=== PATIENT | male | born 1975 | race Caucasian/White ===

== ENCOUNTER 2021-04-18 13:23 | Emergency (ER) | payer OTHER, SELFPAY ==
[2021-04-18 13:36] VITALS: BP 157/99; PULSE 80; RESP 16; TEMP 36.5; O2SAT 99
--- NOTE | 2021-04-18 13:43 | ED.URI ---
HPI - URI/Sore Throat General Chief Complaint: Upper Respiratory Infection Stated Complaint: sinus infection Source: patient Mode of arrival: ambulatory Limitations: no limitations History of Present Illness HPI Narrative: Patient is a 45-year-old male who presents complaining of cough, congestion, runny nose and body aches. He reports being tested for [facility] at the [facility] and was negative. Reports positive for parainfluenza virus. He denies taking any [id number] medications prior to arrival. Reports a history of Covid in July 2020, reports vaccinated x2. Patient reports a history of hypertension. MD elicited complaint: sore throat, rhinorrhea and nasal congestion Related Data Home Medications Medication Instructions Recorded Confirmed Cpap 04/18/21 04/18/21 Allergies Allergy/AdvReac Type Severity Reaction Status Date / Time No Known Allergies Allergy Verified 04/18/21 13:48 Review of Systems Review of Systems: CONSTITUTIONAL: Denies fever, chills, or sweats. EYES: Denies visual changes, redness, or discharge. ENT: Reports rhinorrhea, congestion, sore throat. CARDIOVASCULAR: Denies chest pain, palpitations, or edema. RESPIRATORY: Denies cough or dyspnea. GASTROINTESTINAL: Denies abdominal pain, nausea, vomiting, or diarrhea. GENITOURINARY: Denies dysuria or hematuria. SKIN: Denies rash or itching. MUSCULOSKELETAL: Denies back pain, joint pain, or myalgia. NEUROLOGIC: Denies headache, numbness, dizziness, or weakness. PSYCHIATRIC: Denies anxiety or depression. [facility] Past Medical History Medical History Arthritis Fracture Hiatal hernia HTN (hypertension) Surgical History Surgical History History of orthopedic surgery Family History Family History (Updated 04/18/21 @ 13:45 by JELANI Jones) Mother Family history of thyroid disease Other Carcinoma of colon Parkinsons disease Social History Social History (Updated 04/18/21 @ 13:46 by JELANI Jones) Smoking status: Former smoker Smoking end date: 08/11/11 Alcohol intake: current Substance use: never Living arrangements: with family Comments At the time of signature, I have reviewed and agree with nursing past medical, surgical, social, and family history unless otherwise noted. Please see nursing chart for further information. There is no relevant family history pertinent to the presenting complaint. Exam Narrative: GENERAL: Well-appearing, well-nourished, and in no acute distress. HEAD: Normocephalic, atraumatic. EYES: EOMI. No redness or drainage. Conjunctiva are normal. ENT: Mucous membranes pink and moist. Nares clear. Positive rhinorrhea. Throat mild erythema, no edema or exudate. Uvula midline. NECK: AROM. Supple. No lymphadenopathy. CHEST: No respiratory distress. HEART: Regular rate and rhythm. EXTREMITIES: Normal range of motion. No edema. SKIN: Warm, dry, no rash. NEURO: No focal deficits. Alert and oriented x3. Gait steady. PSYCH: Normal affect. No signs of depression or anxiety. Course Vital Signs Vital signs: Vital Signs Temperature 36.5 C 04/18/21 13:36 Pulse Rate 80 04/18/21 13:36 Respiratory Rate 16 04/18/21 13:36 Blood Pressure 157/99 H 04/18/21 13:36 Pulse Oximetry 99 04/18/21 13:36 Temperature 36.5 C 04/18/21 13:36 Pulse Rate 80 04/18/21 13:36 Respiratory Rate 16 04/18/21 13:36 Blood Pressure 157/99 H 04/18/21 13:36 Pulse Oximetry 99 04/18/21 13:36 Reviewed. Patient has been instructed to follow-up with his PCP regarding his blood pressure. MDM - URI/Sore Throat MDM Narrative Medical decision making narrative: Discussed with patient most likely viral illness. Patient reports that Covid testing was negative at the [facility]. Discussed quarantine and when the return to work. Patient agrees with plan of care. Patient is stable for dischar
== END 2021-04-18 14:05 | disposition home or self-care (01) ==
PROVIDERS: Emergency Provider Nurse Practitioner
DX: J06.9 Acute upper respiratory infection, unspecified (principal); Z87.891 Personal history of nicotine dependence; M19.90 Unspecified osteoarthritis, unspecified site; I10 Essential (primary) hypertension
CPT/HCPCS: 99202; G0463

== ENCOUNTER 2021-05-02 08:02 | Emergency (ER) | payer OTHER, SELFPAY ==
--- NOTE | 2021-05-02 08:07 | ED.URI ---
HPI - URI/Sore Throat General Chief Complaint: Upper Respiratory Infection Stated Complaint: cough and upset stomach Time Seen by Provider: 05/02/21 08:07 Source: patient and RN notes reviewed History of Present Illness HPI Narrative: Patient is a 45-year-old male who presents the urgent care with complaints of cough and upset stomach. 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 Patient was seen here on April 18 and states that symptoms did improve up until last night. [facility] and had parainfluenza 2 . Patient states that he had been taking Tylenol/ibuprofen and Mucinex. Patient states he has had the cough since he had Covid back in July 2020. Denies of any new symptoms. Denies of any vomiting or abdominal pain. Patient mentions several times that he was having to work alone today and needed a work release . No other acute complaints. No acute distress noted. Patient aware of the plan of care. Some parts of this dictation were generated by voice recognition software and may contain typographical and/or grammatical inaccuracies. Related Data Home Medications Medication Instructions Recorded Confirmed Cpap 04/18/21 05/02/21 Allergies Allergy/AdvReac Type Severity Reaction Status Date / Time No Known Allergies Allergy Verified 05/02/21 08:20 Review of Systems Review of Systems: CONSTITUTIONAL: Denies fever, chills, or sweats. EYES: Denies visual changes, redness, or discharge. ENT: Denies rhinorrhea, congestion, sore throat, or otalgia. CARDIOVASCULAR: Denies chest pain, palpitations, or edema. RESPIRATORY: Reports of post Covid cough without dyspnea GASTROINTESTINAL: Reports of nausea without vomiting, abdominal pain or diarrhea GENITOURINARY: Denies dysuria or hematuria. SKIN: Denies rash or itching. MUSCULOSKELETAL: Denies back pain, joint pain, or myalgia. NEUROLOGIC: Denies headache, numbness, or weakness. All other systems reviewed are negative, except as documented in HPI. [facility] Past Medical History Medical History Arthritis Fracture Hiatal hernia HTN (hypertension) Surgical History Surgical History History of orthopedic surgery Family History Family History (Updated 04/18/21 @ 13:45 by JELANI Jones) Mother Family history of thyroid disease Other Carcinoma of colon Parkinsons disease Social History Social History (Updated 04/18/21 @ 13:46 by JELANI Jones) Smoking status: Former smoker Smoking end date: 08/11/11 Alcohol intake: current Substance use: never Comments At the time of my signature, I reviewed and agree with the nursing past medical, surgical, social, and family history. There is no relevant family history pertinent to the patient complaint. Exam Narrative: GENERAL: This is a well-nourished, well-developed patient, in no apparent distress. HEAD: normocephalic, atraumatic. EYES: PERRL. Sclera clear/white. Vision is grossly intact. EARS: External ears normal, auditory canals clear and without drainage, TMs normal without perforation. Hearing grossly intact. NOSE: External nose normal with no obvious nasal discharge, nares without redness, no rhinorrhea. THROAT: Mucous membranes moist, posterior pharynx clear. Mild postnasal drainage NECK: Neck supple CARDIOVASCULAR: Regular rate and rhythm without murmurs, gallops, or rubs. RESPIRATORY: Clear to auscultation. Breath sounds equal bilaterally. No wheezes, rales, or rhonchi. GASTROINTESTINAL: Abdomen soft, non-tender. Bowel sounds are active. SKIN: warm, intact with no suspicious lesions or rash, good texture and turgor. NEURO: awake, alert, and oriented to person, place and time. There were no obvious focal neurologic abnormalities. EXTREMITIES: No clubb
[2021-05-02 08:11] VITALS: BP 153/94; PULSE 76; RESP 16; TEMP 36.9; O2SAT 99
== END 2021-05-02 08:25 | disposition home or self-care (01) ==
PROVIDERS: Emergency Provider Nurse Practitioner Family
DX: B34.9 Viral infection, unspecified (principal); Z87.891 Personal history of nicotine dependence; M19.90 Unspecified osteoarthritis, unspecified site; I10 Essential (primary) hypertension; Z86.16 Personal history of COVID-19
CPT/HCPCS: 99213; G0463

== ENCOUNTER 2021-05-17 08:03 | Emergency (ER) | payer OTHER, SELFPAY ==
[2021-05-17 08:10] VITALS: BP 150/90; PULSE 71; RESP 18; TEMP 36.7; O2SAT 98
--- NOTE | 2021-05-17 08:29 | ED.UPPEXIN ---
HPI - Extremity Injury (Upper) General Chief Complaint: Extremity Injury, Upper Stated Complaint: Right Arm Injury Time Seen by Provider: 05/17/21 08:35 Source: patient and RN notes reviewed Mode of arrival: ambulatory Limitations: no limitations History of Present Illness HPI narrative: Patient is a 45-year-old male patient who presents to [facility] with a history of right wrist and forearm pain. Patient states he was pushing a carly yesterday and felt sudden pain to his right forearm. Patient states finger 3 and 4 were tight. Patient has not taken any medicine or used any [id number] measures prior to arrival. Patient denies any other injuries. Patient is able to move all fingers, wrist, and arm. Patient states pain is 8 out of 10 when the injury occurred. MD complaint: injury to: right, forearm and wrist Related Data Allergies Allergy/AdvReac Type Severity Reaction Status Date / Time No Known Allergies Allergy Verified 05/17/21 08:22 Review of Systems Review of Systems: CONSTITUTIONAL: Denies body aches, fever, chills, or sweats. EYES: Denies visual changes, redness, or discharge. ENT: Denies rhinorrhea, congestion, sore throat, or otalgia. CARDIOVASCULAR: Denies chest pain, palpitations, or edema. RESPIRATORY: Denies cough or dyspnea. GASTROINTESTINAL: Denies abdominal pain, nausea, vomiting, or diarrhea. GENITOURINARY: Denies dysuria or hematuria. SKIN: Denies rash, itching, or wounds. MUSCULOSKELETAL: + for right wrist forearm pain. NEUROLOGIC: Denies headache, numbness, tingling, or weakness. PSYCH: Denies depression or anxiety. All systems reviewed & are unremarkable except as noted in HPI and below PMFSH Past Medical History Medical History Arthritis Fracture Hiatal hernia HTN (hypertension) Surgical History Surgical History History of orthopedic surgery Family History Family History Mother Family history of thyroid disease Other Carcinoma of colon Parkinsons disease Social History Social History Smoking status: Former smoker Smoking end date: 08/11/11 Alcohol intake: current Substance use: never Comments At time of signature, I have reviewed and agree with nursing past medical, surgical, social and family history unless otherwise noted. Please see nursing chart for further information. There is no relevant family history pertinent to the presenting complaint Exam Narrative: GENERAL: Well-appearing, well-nourished, and in no acute distress. HEAD: Normocephalic, atraumatic. EYES: EOMI. No redness or drainage. Conjunctivae normal. ENT: Mucous membranes pink and moist. Nares clear. No rhinorrhea. NECK: Normal AROM. Supple. MUSCULOSKELETAL: No bony tenderness. EXTREMITIES: Normal range of motion. No edema. SKIN: Warm, dry, no rash. Capillary refill normal. Normal skin turgor. Right radial pulse 2+ NEURO: No focal deficits. Alert and oriented x3. Gait steady. PSYCH: Normal affect. No signs of depression or anxiety. Course Vital Signs Vital signs: Vital Signs Temperature 36.7 C 05/17/21 08:10 Pulse Rate 71 05/17/21 08:10 Respiratory Rate 18 05/17/21 08:10 Blood Pressure 150/90 H 05/17/21 08:10 Pulse Oximetry 98 05/17/21 08:10 Temperature 36.7 C 05/17/21 08:10 Pulse Rate 71 05/17/21 08:10 Respiratory Rate 18 05/17/21 08:10 Blood Pressure 150/90 H 05/17/21 08:10 Pulse Oximetry 98 05/17/21 08:10 Reviewed. Pt has been instructed to follow up with his PCP regarding his elevated blood pressure today. MDM - Extremity Injury (Upper) MDM Narrative Medical decision making narrative: Patient has no acute injury. Patient's range of motion is completely normal. Capillary refill is less than 2 seconds. Radial
== END 2021-05-17 08:35 | disposition home or self-care (01) ==
PROVIDERS: Emergency Provider Nurse Practitioner Family
DX: S63.501A Unspecified sprain of right wrist, initial encounter (principal); S66.911A Strain of unspecified muscle, fascia and tendon at wrist and hand level, right hand, initial encounter; X58.XXXA Exposure to other specified factors, initial encounter; M19.90 Unspecified osteoarthritis, unspecified site; I10 Essential (primary) hypertension; Z87.891 Personal history of nicotine dependence
CPT/HCPCS: 99213; G0463